=== PATIENT | female | born 1965 | race Caucasian/White ===

== ENCOUNTER 2023-06-10 12:13 | Emergency (ER) | payer OTHER ==
--- NOTE | 2023-06-10 13:06 | RAD REPORT ---
EXAM DESCRIPTION: CT - [id number] - 06/10/2023 12:57 pm CLINICAL HISTORY: Trauma, head and neck injury. Dizziness;Trauma COMPARISON: No comparisons TECHNIQUE: Axial 5 mm thick images of the head were obtained. Axial 2 mm thick images of the cervical spine were obtained with sagittal and coronal reconstruction images generated and reviewed. All CT scans are performed using dose optimization technique as appropriate and may include automated exposure control or mA/KV adjustment according to patient size. FINDINGS: CT HEAD WITHOUT CONTRAST: No acute hemorrhage, hydrocephalus or extra-axial collection is identified.Mild brain atrophy.No area s of brain edema or midline shift. The paranasal sinuses and mastoids are clear.The calvarium is intact. CT CERVICAL SPINE WITHOUT CONTRAST: No fracture or subluxation.Moderate mid and lower cervical degenerative changes.No prevertebral soft tissues swelling is identified. IMPRESSION: No acute intracranial or cervical spine findings.
[2023-06-10 13:29] LABS: Specific Gravity 1.021 (1.005-1.030); Urine Bacteria <20 /HPF (<20); Urine Bilirubin NEGATIVE (Negative); Urine Blood 2+ (Negative); Urine Clarity Extremely Turbid (Clear); Urine Color Yellow (Yellow); Urine Glucose NEGATIVE (Negative); Urine Mucus Slight /HPF (None Seen); Urine Protein NEGATIVE (Negative); Urine RBC 21-50 /HPF (None Seen); Urine Urobilinogen Normal (Normal); Urine pH 5.5 (5.0-7.0)
[2023-06-10] MEDS ORDERED: TDAP (DIPHTH,PERTUSS(ACELL),TET VAC) 0.5 ML VIAL IMVAC ONE (13:57)
--- NOTE | 2023-06-10 13:59 | ER ---
Nurse's Notes [facility] Name: Elena Holder Age: 57 yrs Sex: Female : 1965 Arrival Date: 06/10/2023 Time: 12:13 Bed 20 Private MD: Emiliano Alexander Diagnosis: Unspecified injury of head, initial encounter;Laceration without foreign body of scalp;UTI/ Urinary tract infection, site not specified Presentation: 06/10 12:29 Chief complaint: Patient states: slammed mccallum of car on head in parking lot approx 20 eh3 minutes ago, knocked to the ground but denies LOC. Pt states she suspects she has a UTI, c/o burning and frequency with urination for past 3 days. Coronavirus screen: Vaccine status: Patient reports receiving the 2nd dose of the covid vaccine. Ebola Screen: No symptoms or risks identified at this time. Complicating Factors: There are no complicating factors for this patient. Initial Sepsis Screen: Does the patient meet any 2 criteria? No. Patient's initial sepsis screen is negative. Does the patient have a suspected source of infection? Yes: Dysuria/Frequency/Urgency/UTI. Risk Assessment: Do you want to hurt yourself or someone else? Patient reports no desire to harm self or others. Onset of symptoms was June 10, 2023. 12:29 Method Of Arrival: Ambulatory 3 12:29 Acuity: HILDA 3 eh3 Triage Assessment: 12:32 General: Appears in no apparent distress. uncomfortable, Behavior is calm, cooperative, eh3 appropriate for age. Pain: Complains of pain in head. Neuro: Level of Consciousness is awake, alert, obeys commands, Oriented to person, place, time, situation, Speech is normal, Pupils are PERRLA. Cardiovascular: Capillary refill < 3 seconds Patient's skin is warm and dry. Respiratory: Airway is patent Respiratory effort is even, unlabored, Respiratory pattern is regular, symmetrical. GI: Abdomen is round non-distended. Derm: Skin is pink, warm \T\ dry. Musculoskeletal: Circulation, motion, and sensation intact. Injury Description: Laceration sustained to right temporal area is 0.5 to 2.5 cm long, bleeding moderately, was sustained less than 30 minutes ago. is bleeding moderately. Historical: - Allergies: 12:31 No Known Allergies; eh3 - Home Meds: 12:31 atorvastatin oral [Active]; pantoprazole oral [Active]; eh3 - PMHx: 12:31 Hypercholesterolemia; Gastroesophageal reflux disease; eh3 - PSHx: 12:31 Total abdominal hysterectomy; eh3 12:32 Gastric sleeve; 3 - Immunization history:: Adult Immunizations up to date. - Social history:: Smoking status: Patient reports the use of cigarette tobacco products, smokes 0.25 packs per day, Patient uses alcohol, on a daily basis. Screenin:30 [facility] ED Fall Risk Assessment (Adult) Score/Fall Risk Level 0 - 2 = Low Risk. Abuse eh3 screen: Denies threats or abuse. Denies injuries from another. Nutritional screening: No deficits noted. Tuberculosis screening: No symptoms or risk factors identified. Assessment: 12:30 Reassessment: No changes from previously documented assessment. See triage assessment. eh3 13:30 Reassessment: Patient appears in no apparent distress at this time. Patient and/or 3 family updated on plan of care and expected duration. Pain level reassessed. Patient is alert, oriented x 3, equal unlabored respirations, skin warm/dry/pink. Vital Signs: 12:29 BP 120 / 75; Pulse 80; Resp 16; Temp 97.9(O); Pulse Ox 97% on R/A; Weight 74.84 kg; eh3 Height 5 ft. 6 in. ; Pain 8/10; 13:30 BP 104 / 73; Pulse 67; Resp 16; Pulse Ox 98% on R/A; eh3 12:29 Body Mass Index 26.63 (74.84 kg, 167.64 cm) 3 12:29 Pain Scale: Adult [facility] ED Course: 12:14 Patient arrived in ED. as 12:14 Emiliano Alexander MD is Private Physician. as 12: Ruthann Sen F[facility]-C [facility]. snw 12:25 Kecia Perez MD is Attending Physician. snw 12:25 Arm band placed on Patient placed in an exam room, on a stretcher. ll1 12:29 Lelia Paniagua, RN is Primary Nurse. eh3 12:30 Patient has correct armband on for positive identification. Bed in low position. Call [facility] light in reach. Side rails up X2. Adult w/ patient. Provided Education on: use of call beavers. Pulse ox on. NIBP on. 12:31 Triage completed. eh3 12:58 CT Head C Spine In Process Unspecified. EDMS 13:57 Emiliano Alexander MD is Referral Physician. snw 14:00 No provider procedures requiring assistance completed. Patient did not have IV access eh3 during this emergency room visit. Administered Medications: 13:00 Drug: Hibiclens Topical Liquid 4 % 1 application Topical once Route: Topical; Site: eh3 affected area; 13:40 Drug: Boostrix Tdap IM 0.5 ml IM once; as a single dose Route: IM; Site: right deltoid; eh3 14:00 Follow up: Response: (VIS) Vaccine information sheet provided today. Questions and/or eh3 concerns addressed. VIS edition date: Feb 19, 2021.; No adverse reaction Medication: 13:35 Vaccine Information Statement (VIS) provided today. Questions and/or concerns eh3 addressed. VIS edition date: June 10, 2023. Outcome: 13:58 Discharge ordered by . snw 14:28 Discharged to home ambulatory, with family, eh3 14:28 Condition: stable 14:28 Discharge instructions given to patient, Instructed on discharge instructions, follow up and referral plans. medication usage, Demonstrated understanding of instructions, follow-up care, medications, Prescriptions given X 3, 14:29 Patient left the ED. eh3 Addendum: 06/13/2023 15:17 Addendum: Culture Results: Positive urine culture. No further action required. Bacteria k b3 sensitive to prescribed antibiotic. Signatures: Dispatcher [employer] EDMA Ruthann Sen, [place]-C RIGHT OF WAY MANAGER-Nargis Almaguer as Michel Giang, RN RN ll1 Lelia Paniagua, CRISSY RN eh3 Bisi Hull, RN RN kb3 Corrections: (The following items were deleted from the chart) 06/10 16:53 14:28 Discharge instructions given to patient, Instructed on discharge instructions, eh3 follow up and referral plans. Demonstrated understanding of instructions, follow-up care, eh3
--- NOTE | 2023-06-10 13:59 | EDPHYS ---
Physician Documentation [facility] Name: Elena Holder Age: 57 yrs Sex: Female : 1965 Arrival Date: 06/10/2023 Time: 12:13 Bed 20 Private MD: Emiliano Alexander ED Physician Kecia Perez HPI: 06/10 13:24 This 57 yrs old Female presents to ER via Ambulatory with complaints of Laceration To snw Head, Dizziness. 13:24 The patient has a laceration related to: pulling car mccallum down and it struck her in snw the head at the right cheondoism. Onset: The symptoms/episode began/occurred suddenly, just prior to arrival. Associated signs and symptoms: Pertinent positives: dizziness, "I feel like I have a UTI". The patient has not recently seen a physician. Historical: - Allergies: 12:31 No Known Allergies; eh3 - Home Meds: 12:31 atorvastatin oral [Active]; pantoprazole oral [Active]; eh3 - PMHx: 12:31 Hypercholesterolemia; Gastroesophageal reflux disease; eh3 - PSHx: 12:31 Total abdominal hysterectomy; 3 12:32 Gastric sleeve; eh3 - Immunization history:: Adult Immunizations up to date. - Social history:: Smoking status: Patient reports the use of cigarette tobacco products, smokes 0.25 packs per day, Patient uses alcohol, on a daily basis. ROS: 13:25 Eyes: Negative for injury, pain, redness, and discharge, ENT: Negative for injury, snw pain, and discharge, Neck: Negative for injury, pain, and swelling, Cardiovascular: Negative for chest pain, palpitations, and edema, Respiratory: Negative for shortness of breath, cough, wheezing, and pleuritic chest pain, Abdomen/GI: Negative for abdominal pain, nausea, vomiting, diarrhea, and constipation, Back: Negative for injury and pain, 13:25 MS/Extremity: Negative for injury and deformity, Skin: Negative for injury, rash, and discoloration, 13:25 Psych: Negative for depression, anxiety, suicide ideation, homicidal ideation, and hallucinations, 13:25 Constitutional: Positive for body aches, 13:25 : Positive for urinary symptoms, 13:25 Neuro: Positive for dizziness, closed head injury, laceration to right cheondoism area, Exam: 13:23 Constitutional: This is a well developed, well nourished patient who is awake, alert, snw and in no acute distress. Eyes: Pupils equal round and reactive to light, extra-ocular motions intact. Lids and lashes normal. Conjunctiva and sclera are non-icteric and not injected. Cornea within normal limits. Periorbital areas with no swelling, redness, or edema. ENT: Nares patent. No nasal discharge, no septal abnormalities noted. Tympanic membranes are normal and external auditory canals are clear. Oropharynx with no redness, swelling, or masses, exudates, or evidence of obstruction, uvula midline. Mucous membranes moist. Neck: Trachea midline, no thyromegaly or masses palpated, and no cervical lymphadenopathy. Supple, full range of motion without nuchal rigidity, or vertebral point tenderness. No Meningismus. Chest/axilla: Normal chest wall appearance and motion. Nontender with no deformity. No lesions are appreciated. Cardiovascular: Regular rate and rhythm with a normal S1 and S2. No gallops, murmurs, or rubs. Normal PMI, no JVD. No pulse deficits. Respiratory: Lungs have equal breath sounds bilaterally, clear to auscultation and percussion. No rales, rhonchi or wheezes noted. No increased work of breathing, no retractions or nasal flaring. Abdomen/GI: Soft, non-tender, with normal bowel sounds. No distension or tympany. No guarding or rebound. No evidence of tenderness throughout. Back: No spinal tenderness. No costovertebral tenderness. Full range of motion. Skin: Warm, dry with normal turgor. Normal color with no rashes, no lesions, and no evidence of cellulitis. MS/ Extremity: Pulses equal, no cyanosis. Neurovascular intact. Full, normal range of motion. Neuro: Awake and alert, GCS 15, oriented to person, place, time, and situation. Cranial nerves II-XII grossly intact. Motor strength 5/5 in all extremities. Sensory grossly intact. Cerebellar exam normal. Normal gait. Psych: Awake, alert, with orientation to person, place and time. Behavior, mood, and affect are within normal limits. 13:23 Head/face: Noted is a laceration(s), that is superficial, 2.5 cm(s), of the right temporal area, tenderness, that is moderate, Vital Signs: 12:29 BP 120 / 75; Pulse 80; Resp 16; Temp 97.9(O); Pulse Ox 97% on R/A; Weight 74.84 kg; eh3 Height 5 ft. 6 in. ; Pain 8/10; 13:30 BP 104 / 73; Pulse 67; Resp 16; Pulse Ox 98% on R/A; eh3 12:29 Body Mass Index 26.63 (74.84 kg, 167.64 cm) 3 12:29 Pain Scale: Adult eh3 MDM: 12:32 Patient medically screened. snw 13:26 Differential diagnosis: superficial laceration, closed head injury. Data reviewed: snw vital signs, nurses notes, lab test result(s), radiologic studies, CT scan. Counseling: I had a detailed discussion with the patient and/or guardian regarding the historical points, exam findings, and any diagnostic results supporting the discharge/admit diagnosis, lab results, radiology results, the need for outpatient follow up, to return to the emergency department if symptoms worsen or persist or if there are any questions or concerns that arise at home. Response to treatment: the patient's symptoms have mildly improved after treatment. Special discussion: Based on the patient's history, exam and DX evaluation, there is no indication for emergent intervention or inpatient TX. It is understood by the patient/guardian that if the SXs persist or worsen they need to return immediately for re-evaluation. Based on the history and exam findings, there is no indication for further emergent testing or inpatient evaluation. I discussed with the patient/guardian the need to see the primary care provider for further evaluation of the symptoms. 06/10 12:33 Order name: Urine W/Microscopic (UAM); Complete Time: 13:37 snw 06/10 13:32 Order name: Urine Culture EDMS 06/10 12:33 Order name: CT Head C Spine; Complete Time: 13:08 snw 06/10 12:33 Order name: Wound Care; Complete Time: 13:40 snw Administered Medications: 13:00 Drug: Hibiclens Topical Liquid 4 % 1 application Topical once Route: Topical; Site: 3 affected area; 13:40 Drug: Boostrix Tdap IM 0.5 ml IM once; as a single dose Route: IM; Site: right deltoid; eh3 14:00 Follow up: Response: (VIS) Vaccine information sheet provided today. Questions and/or 3 concerns addressed. VIS edition date: Feb 19, 2021.; No adverse reaction Disposition Summary: 06/10/23 13:58 Discharge Ordered Notes: Location: Home snw Condition: Stable snw Diagnosis - Unspecified injury of head, initial encounter snw - Laceration without foreign body of scalp snw - UTI/ Urinary tract infection, site not specified snw Followup: snw - With: Emergency Department - When: As needed - Reason: Worsening of condition Followup: snw - With: Emiliano Alexander MD - When: 5 - 6 days - Reason: Recheck today's complaints, Continuance of care, Re-evaluation by your physician Discharge Instructions: - Discharge Summary Sheet snw - Head Injury, Adult snw - Facial Laceration snw - Urinary Tract Infection, Adult snw - Rehydration, Adult snw Forms: - Medication Reconciliation Form snw - Thank You Letter snw - Antibiotic Education snw - Prescription Opioid Use snw - Patient Portal Instructions snw - Leadership Thank You Letter snw Prescriptions: - Augmentin 875-125 mg Oral Tablet - take 1 tablet ORAL route every 12 hours for 10 days; 20 tablet; Refills: 0, snw Product Selection Permitted - Tramadol 50 mg Oral Tablet - take 1 tablet ORAL route every 8 hours as needed; 12 tablet; Refills: 0, snw Product Selection Permitted - promethazine 25 mg Oral Tablet - take 1 tablet ORAL route every 6 hours As needed; 20 tablet; Refills: 0, snw Product Selection Permitted Signatures: Dispatcher [employer] Ruthann Nieto FNP-C FNP-Meraryw Lelia Paniagua, RN RN eh3
[2023-06-10 14:50] VITALS: TEMP 97.9
[2023-06-10 14:51] VITALS: BP 104/73; O2SAT 98
== END 2023-06-10 14:29 | disposition home or self-care (01) ==
LOC: ER 12:13
PROC: 0HQ0XZZ Repair Scalp Skin, External Approach (ICD-10-PCS; principal; 2023-06-10)
DX: S01.01XA Laceration without foreign body of scalp, initial encounter (principal); N39.0 Urinary tract infection, site not specified; F17.210 Nicotine dependence, cigarettes, uncomplicated
CPT/HCPCS: 70450; 72125; 81001; 87077; 87086; 87088; 87186; 96372; 99284

== ENCOUNTER → 2023-07-16 | Emergency (ER) | payer OTHER ==
[~2023-07-16] MED LIST: NA CHLORIDE 0.9% 1,000 ML ONE
[2023-07-16 01:01] LABS: Absolute Lymphocytes (CBC) 3.3 K/uL (0.7-4.9); Hematocrit 38.3 % (36.0-45.0); Lymphocytes % 54.3 % (15.3-44.8); MCV 91.1 fL (80-100); MPV 7.9 fL (7.6-11.3); Platelets 216 thou/uL (152-406)
[2023-07-16 01:19] LABS: Albumin 3.4 g/dL (3.4-5.0); Bilirubin Total 0.4 mg/dL (0.2-1.0); Potassium 3.6 mEq/L (3.5-5.1); Protein, Total 6.5 g/dL (6.4-8.2)
--- NOTE | 2023-07-16 01:32 | EDPHYS ---
Physician Documentation [facility] Name: Elena Holder Age: 57 yrs Sex: Female : 1965 Arrival Date: 07/16/2023 Time: 00:14 Bed 6 Private MD: ED Physician Car Palma HPI: 07/16 00:31 This 57 yrs old Female presents to ER via Unassigned with complaints of ec2 ABNORMAL BLOOD WORK. 00:31 Patient arrives today for evaluation of possible abnormal labs. Patient had outpatient ec2 labs and was told that she had hyperkalemia. Patient reports no issues with kidney disease, was told that there was 7 in the number however unclear what the exact number was. Patient reports no vomiting or diarrhea. Patient reports maybe some chest discomfort that she attributes to anxiety.. Historical: - Home Meds: 00:34 atorvastatin oral [Active]; pantoprazole oral [Active]; pf1 - PMHx: 00:34 Gastroesophageal reflux disease; Hypercholesterolemia; pf1 - PSHx: 00:34 gastric sleeve; Total abdominal hysterectomy; pf1 00:35 breast augmentation; pf1 - Immunization history:: Adult Immunizations up to date, Client reports receiving the 2nd dose of the Covid vaccine, [place] Last tetanus immunization: < 5 years ago Flu vaccine is not up to date. - Social history:: Smoking status: Patient reports the use of cigarette tobacco products, smokes one-half pack cigarettes per day, Patient uses alcohol, on a daily basis. one glass of wine daily . Patient/guardian denies using street drugs. ROS: 00:31 Constitutional: as per hpi ec2 Exam: 00:31 Constitutional: GEN: NAD Head: atraumatic Eyes: EOMI Ears: External ears are ec2 normal. CV: regular rate LUNGS: no respiratory distress ABD: non-distended SKIN: no evidence of rashes MSK: no evidence of trauma NEURO: moves all extremities equally Vital Signs: 00:29 BP 119 / 90; Pulse 79; Resp 18; Temp 98.9; Pulse Ox 100% on R/A; Weight 76.66 kg; pf1 Height 5 ft. 7 in. ; Pain 0/10; 01:30 BP 121 / 90; Pulse 75; Resp 17 S; Pulse Ox 100% on R/A; ha1 00:29 Body Mass Index 26.47 (76.66 kg, 170.18 cm) pf1 00:29 Pain Scale: Adult pf1 [place] Coma Score: 00:35 Eye Response: spontaneous(4). Motor Response: obeys commands(6). Verbal Response: km8 oriented(5). Total: 15. MDM: 00:24 Patient medically screened. ec2 00:31 ED course: Patient arrives today due to concern for possible hyperkalemia. Examination ec2 remarkable for well-appearing nontoxic individual is otherwise in no acute distress. Will obtain repeat lab work, troponin and reassess the patient. I did obtain an EKG which was independently reviewed and interpreted by me, shows normal sinus rhythm, rate of 79, no acute ST segment elevations, intervals are pertinent for first-degree AV block otherwise no evidence of hyperkalemia or concerning intervals.. 01:01 Data reviewed: vital signs. ED course: Chest x-ray independently reviewed and ec2 interpreted by me, shows no acute intrathoracic process. . 01:22 ED course: Metabolic profile is reassuring with reassuring potassium. I suspect the ec2 previous sample was hemolyzed.. 01:30 ED course: Troponin within normal ranges. Will discharge her home and have her ec2 follow-up with her primary care doctor.. 12 00:27 Order name: CBC with Diff; Complete Time: 01:18 ec2 07/16 00:27 Order name: CMP; Complete Time: 01:21 ec2 07/16 00:30 Order name: Troponin High Sensitivity; Complete Time: 01:30 ec2 07/16 00:33 Order name: CXR XRAY ec2 07/16 00:27 Order name: EKG; Complete Time: 00:27 ec2 07/16 00:27 Order name: EKG - Nurse/Tech; Complete Time: 00:34 ec2 Administered Medications: 00:40 Drug: NS 0.9% IV 1000 ml IV at 1 bolus Per protocol; 1000 mL bolus Route: IV; Rate: 1 ha1 bolus; Site: right forearm; 01:48 Follow up: Response: No adverse reaction; IV Status: Completed infusion; IV Intake: ha1 1000ml Disposition Summary: 07/16/23 01:31 Discharge Ordered Notes: Location: Home ec2 Condition: Stable ec2 Diagnosis - Encounter for general adult medical examination ec2 Followup: ec2 - With: Private Physician - When: - Reason: Recheck today's complaints Forms: - Medication Reconciliation Form ec2 - Thank You Letter ec2 - Antibiotic Education ec2 - Prescription Opioid Use ec2 - Patient Portal Instructions ec2 - Leadership Thank You Letter ec2 Signatures: Dispatcher [employer] Amparo Monterroso RN RN ha1 Lexi Sparrow RN RN pf1 Car Palma MD MD ec2 Corrections: (The following items were deleted from the chart) 00:36 00:34 PSHx: breast augmentation (Total abdominal hysterectomy); pf1 pf1
--- NOTE | 2023-07-16 01:32 | ER ---
Nurse's Notes [facility] Name: Elena Holder Age: 57 yrs Sex: Female : 1965 Arrival Date: 07/16/2023 Time: 00:14 Bed 6 Private MD: Diagnosis: Encounter for general adult medical examination Presentation: 07/16 00:29 Chief complaint: Patient states: Dr. Alexander notified patient at 0000 that she had pf1 elevated K+ levels. Patient stated that left side of chest feels funny, denies any chest pain. Patient stated is currently taking antibiotics for UTI. Coronavirus screen: Vaccine status: Patient reports receiving the 2nd dose of the covid vaccine. Client denies travel out of the [place] in the last 14 days. At this time, the client does not indicate any symptoms associated with coronavirus-19. Ebola Screen: Patient negative for fever greater than or equal to 101.5 degrees Fahrenheit, and additional compatible Ebola Virus Disease symptoms. Initial Sepsis Screen: Does the patient meet any 2 criteria? No. Patient's initial sepsis screen is negative. Does the patient have a suspected source of infection? No. Patient's initial sepsis screen is negative. Risk Assessment: Do you want to hurt yourself or someone else? Patient reports no desire to harm self or others. 00:29 Method Of Arrival: Ambulatory pf1 00:29 Acuity: HILDA 3 pf1 00:51 Onset of symptoms is unknown. km8 Historical: - Home Meds: 00:34 atorvastatin oral [Active]; pantoprazole oral [Active]; pf1 - PMHx: 00:34 Gastroesophageal reflux disease; Hypercholesterolemia; pf1 - PSHx: 00:34 gastric sleeve; Total abdominal hysterectomy; pf1 00:35 breast augmentation; pf1 - Immunization history:: Adult Immunizations up to date, Client reports receiving the 2nd dose of the Covid vaccine, Pfizer Last tetanus immunization: < 5 years ago Flu vaccine is not up to date. - Social history:: Smoking status: Patient reports the use of cigarette tobacco products, smokes one-half pack cigarettes per day, Patient uses alcohol, on a daily basis. one glass of wine daily . Patient/guardian denies using street drugs. Screenin:35 [facility] ED Fall Risk Assessment (Adult) History of falling in the last 3 months, km8 including since admission No falls in past 3 months (0 pts) Confusion or Disorientation No (0 pts) Intoxicated or Sedated No (0 pts) Impaired Gait No (0 pts) Mobility Assist Device Used No (0 pt) Altered Elimination No (0 pt) Score/Fall Risk Level 0 - 2 = Low Risk Oriented to surroundings, Maintained a safe environment, Educated pt \\T\\ family on fall prevention, incl call for assistance when getting out of bed, Assessed \\T\\ reinforced patient's understanding of fall precautions. Abuse screen: Denies threats or abuse. Denies injuries from another. Nutritional screening: No deficits noted. Tuberculosis screening: No symptoms or risk factors identified. Assessment: 00:35 General: Appears in no apparent distress. comfortable, Behavior is calm, cooperative, km8 appropriate for age. Pain: Denies pain. Neuro: Level of Consciousness is awake, alert, obeys commands, Oriented to person, place, time, situation. Cardiovascular: Reports "chest feels different, but no pain" Capillary refill < 3 seconds Patient's skin is warm and dry. Respiratory: Airway is patent Respiratory effort is even, unlabored, Respiratory pattern is regular, symmetrical, Denies shortness of breath. GI: No signs and/or symptoms were reported involving the gastrointestinal system. : No signs and/or symptoms were reported regarding the genitourinary system. EENT: No signs and/or symptoms were reported regarding the EENT system. Derm: No signs and/or symptoms reported regarding the dermatologic system. Skin is intact, Skin is dry, Skin is pink, warm \\T\\ dry. normal, Skin temperature is warm. Musculoskeletal: No signs and/or symptoms reported regarding the musculoskeletal system. Circulation, motion, and sensation intact. Range of motion: intact in all extremities. 01:30 Reassessment: Patient and/or family updated on plan of care and expected duration. Pain ha1 level reassessed. Patient is alert, oriented x 3, equal unlabored respirations, skin warm/dry/pink. Vital Signs: 00:29 BP 119 / 90; Pulse 79; Resp 18; Temp 98.9; Pulse Ox 100% on R/A; Weight 76.66 kg; pf1 Height 5 ft. 7 in. ; Pain 0/10; 01:30 BP 121 / 90; Pulse 75; Resp 17 S; Pulse Ox 100% on R/A; ha1 00:29 Body Mass Index 26.47 (76.66 kg, 170.18 cm) pf1 00:29 Pain Scale: Adult pf1 Myla Coma Score: 00:35 Eye Response: spontaneous(4). Motor Response: obeys commands(6). Verbal Response: km8 oriented(5). Total: 15. ED Course: 00:18 Patient arrived in ED. ag3 00:18 Car Palma MD is Attending Physician. ec2 00:34 Triage completed. pf1 00:35 Patient has correct armband on for positive identification. Placed in gown. Bed in low km8 position. Call light in reach. Side rails up X 1. Client placed on continuous cardiac and pulse oximetry monitoring. NIBP monitoring applied. 00:35 Arm band placed on right wrist. km8 00:35 No provider procedures requiring assistance completed. Patient maintains SpO2 km8 saturation greater than 95% on room air. 00:51 CMP Sent. pm6 00:51 CBC with Diff Sent. pm6 00:51 Troponin High Sensitivity Sent. pm6 00:51 Inserted saline lock: 20 gauge in right forearm, using aseptic technique. pm6 00:56 CXR XRAY In Process Unspecified. EDMS 01:48 Provided Education on: lab results. ha1 01:48 IV discontinued, intact, bleeding controlled, No redness/swelling at site. Pressure ha1 dressing applied. Administered Medications: 00:40 Drug: NS 0.9% IV 1000 ml IV at 1 bolus Per protocol; 1000 mL bolus Route: IV; Rate: 1 ha1 bolus; Site: right forearm; 01:48 Follow up: Response: No adverse reaction; IV Status: Completed infusion; IV Intake: ha1 1000ml Medication: 00:35 VIS not applicable for this client. km8 Intake: 01:48 IV: 1000ml; Total: 1000ml. ha1 Outcome: 01:31 Discharge ordered by . ec2 01:48 Discharged to home ambulatory, with family, ha1 01:48 Condition: stable 01:48 Discharge instructions given to patient, family, Instructed on discharge instructions, follow up and referral plans. Demonstrated understanding of instructions, follow-up care, 01:49 Patient left the ED. ha1 Signatures: Dispatcher [employer] EDNJ Vandana Dooley 3 Amparo Romero RN RN ha1 Lexi Sparrow RN RN pf1 Car Palma MD MD ec2 Kelsey Haq RN RN km8 Chrissie Villarreal pm6 Corrections: (The following items were deleted from the chart) 00:36 00:34 PSHx: breast augmentation (Total abdominal hysterectomy); pf1 pf1
[2023-07-16 04:54] VITALS: BP 121/90; TEMP 98.9; O2SAT 100
--- NOTE | 2023-07-17 11:36 | RAD REPORT ---
EXAM DESCRIPTION: XR Chest, 1 View CLINICAL HISTORY: The patient is 57 years old and is Female; CHEST PAIN Bed Name: 6 TECHNIQUE: Frontal view of the chest. COMPARISON: No relevant prior studies available. FINDINGS: LUNGS: No discrete focal consolidation. PLEURAL SPACE: No appreciable pleural effusion or pneumothorax. MEDIASTINUM: Unremarkable cardiomediastinal contour. BONES/JOINTS: No acute osseous abnormality. IMPRESSION: No acute findings visualized in the chest. Electronically signed by: Solo Granado MD 07/16/2023 02:17 AM [employer]ACH[employer] Due to temporary technical issues with the PACS/Fluency reporting system, reports are being signed by the in house radiologists without review as a courtesy to insure prompt reporting. The interpreting radiologist is fully responsible for the content of the report.
== END ==
LOC: ER 00:14
DX: Z71.1 Person with feared health complaint in whom no diagnosis is made (principal); Z98.82 Breast implant status
CPT/HCPCS: 93005; 85025; 36415; 84484; 80053; 71045; 96360; 99285; J7030